=== PATIENT | male | born 2000 | race Caucasian/White ===

== ENCOUNTER 2023-11-05 09:58 | Emergency (ER) | payer BC, SELFPAY ==
[2023-11-05 10:00] VITALS: BP 114/66
[2023-11-05] MEDS: TYLENOL 650 MG PO (10:41)
[2023-11-05] MEDS: TORADOL 15 MG IV (10:41)
[2023-11-05 10:54] LABS: % Basophils 0.4 % (0-2); % Immature Granulocytes 0.6 % (0-0.5); % Lymphocytes 6.8 % (20.5-51.1); % Monocytes 8.5 % (1.7-9.3); % Neutrophils 83.7 % (42.2-75.2); Absolute Basophils 0.1 10^3/uL (0-0.2); Absolute Immature Granulocytes 0.1 10^3/uL (0-0.05); Absolute Monocytes 1.2 10^3/uL (0.1-0.6); Absolute Neutrophils 11.7 10^3/uL (1.4-6.5); Hematocrit 37.7 % (39.0-52.0); Hemoglobin 13.2 g/dL (13.0-18.0); Mean Corpuscular Hgb 29.7 pg (27.0-31.0); Mean Corpuscular Volume 84.7 fL (80.0-94.0); Mean Platelet Volume 9.8 fL (7.4-10.4); Nucleated Red Blood Cells % 0 % (-); Platelet Count 212 10^3/uL (130-400); Red Blood Cell Count 4.45 10^6/uL (4.70-6.10); Red Cell Dist. Width 12.7 % (11.5-14.5); White Blood Cell Count 13.9 10^3/uL (4.8-10.8)
--- NOTE | 2023-11-05 11:00 | ED.GENMED ---
History of Present Illness
General
Chief Complaint: Chest Pain
Source: patient
Exam Limitations: none
Time Seen by Provider: 11/05/23 10:07
Nursing documentation reviewed up to this point in time: agreed with
Travel History
Have you had any contact with someone who has COVID-19?: No
Do you have any symptoms of coronavirus? Fever > 100 degrees, chills, cough, shortness of breath, sore throat, loss of taste or smell, muscle aches, or headache?: No
History of Present Illness
History of Present Illness:
23-year-old male with no medical problems presents with 4 days of chest discomfort, mild dry cough, and some shortness of breath. Patient says it feels like something was on top of his chest causing him and inability to take a deep breath for the
last couple of days. He has had some body aches upper back pain and a dry cough. He had residual prednisone from previous flu infection from last month from urgent care. He took a dose of this prednisone yesterday to see if it helped his back
pain. He denies that he had wheezing in the past. Patient says it hurts when he takes a deep breath. He was not aware that he had a fever. He denies any sore throat, headache, syncope, abdominal pain, vomiting, leg swelling. There is been no
recent immobility or surgery. There is no family history of DVT or PE. Patient is not a smoker
Patient went to urgent care today and he had an normal chest x-ray but was told there was an abnormality of his EKG and referred to the emergency department for evaluation for a blood clot.
Past History
Past History
ED Past Medical History: None
ED Past Surgical History: None
Social History
Tobacco: Non-smoker
Alcohol: Occasional
Drug: None
Personal: Single
Living: with family
Employment: Employed
Review of Systems
Review of Systems
Allergies reviewed?: Yes
All Other Systems: Not applicable
Phy Exam
Physical Exam
Physical Exam:
GENERAL: Alert , in no apparent distress, nontoxic, well appearing
EYE: pupils equal and reactive
NECK: Supple
ENT: b/l TM s clear, pharynx nonerythematous, no tonsillar hypertrophy or exudates
CARDIAC: Regular rate and rhythm, no edema
LUNGS: Clear breath sounds bilaterally, no acute respiratory distress, no wheezes/rales/rhonchi, occ cough
chest wall: nontender
ABDOMEN: Soft, without focal tenderness, no r/g, no cvat, normal bowel sounds
NEUROLOGICAL: Alert and oriented, no focal neuro deficits
SKIN: Warm and dry, skin intact.
MUSCULOSKELETAL: No edema, well perfused.
PSYCH: Normal and appropriate interaction.
Scores
Heart Score for Chest Pain Patients
STEMI patient?: Not applicable
Course
Orders/Labs/Results
Orders:
Orders
11/05/23 10:05
Electrocardiogram (*1) Urgent
Reason for Study: Chest Pain
EKG- Treatment ONCE
11/05/23 10:34
Acetaminophen [Tylenol] 650 mg PO NOW STA
Ketorolac [Toradol] 15 mg IV NOW STA
11/05/23 10:38
Complete Blood Count/With Diff Urgent
Comprehensive Metabolic Panel Urgent
D-Dimer Urgent
Troponin I Urgent
11/05/23 11:22
CR Chest - 2 Views Urgent
Comment:
Reason For Exam: chest pain, cough
11/05/23 12:12
Amoxicillin 875 mg/Clav 125 mg [Augmentin 875 mg/125 mg] 1 tablet PO NOW STA
Azithromycin [Zithromax] 500 mg PO NOW STA
Abnormal Lab Results
11/05/23
10:38
WBC 13.9 H 10^3/uL
(4.8-10.8)
RBC 4.45 L 10^6/uL
(4.70-6.10)
Hct 37.7 L %
(39.0-52.0)
Abs Immat Gran (auto) 0.1 H 10^3/uL
(0-0.05)
Absolute Neuts (auto) 11.7 H 10^3/uL
(1.4-6.5)
Absolute Lymphs (auto) 1.0 L 10^3/uL
(1.2-3.4)
Absolute Monos (auto) 1.2 H 10^3/uL
(0.1-0.6)
Immature Gran % 0.6 H %
(0-0.5)
Neutrophils % 83.7 H %
(42.2-75.2)
Lymphocytes % 6.8 L %
(20.5-51.1)
Sodium 131 L mmol/L
(135-145)
Chloride 96 L mmol/L
(98-107)
Glucose 106 H mg/dl
(70-99)
11/05/23 10:38
11/05/23 10:38
Vital Signs
Initial and Last Documented VS:
Initial Vital Signs
Temp Pulse Resp BP Pulse Ox
100.5 F H 100 18 114/66 100
11/05/23 10:00 11/05/23 10:00 11/05/23 10:00 11/05/23 10:00 11/05/23 10:00
Last Documented Vital Signs
Temp Pulse Resp BP Pulse Ox
100.5 F H 93 18 115/58 98
11/05/23 10:00 11/05/23 11:13 11/05/23 11:13 11/05/23 11:13 11/05/23 11:13
MDM/Problems Addressed
Differential Diagnosis Includes:
PNEUMONIA, PE, MYOCARDITIS, URI
MDM/Problems Addressed:
23 y/o M with no sig pmh
here with 4 days of mild chest discomfort with some sob at times,worse with deep breathing
pt had low grade temp today and has had a cough
tested neg for flu/covid at
was told his CXR was normal
but that ekg was abnormal and sent for PE w/u.
pt has no PE rf
no tachycardia, tachypnea
thus, d dimer was ordered as screening which was neg
ekg here is normal, unclear what was abnormal abou this ekg
trop neg
wbc 13 with left shift and cxr with obvious infiltrate L lung, independently reviewed by me
pt will need to ensure resolution with cxr in2 weeks but all signs pointing to infectious and not mass
zithromax 500 mg x 3 days, agumentin bid x 7 days
return precautions.
*Critical Care Note
Total Time (30-74mins, 75-104mins- exclusive of procedures): Not Applicable
ED Attending Note
-
Portions of this chart may have been created with voice recognition software.� Occasional wrong word or��sound alike� substitutions may have occurred due to the inherent limitations of voice recognition software.
Discharge Plan
Departure
Patient Disposition: Home (Routine Discharge)
Date of Disposition: 11/05/23
Time of Disposition: 12:12
Patient with high blood pressure during this ER visit?: No
Condition: Fair
Covid-19: Not Applicable
Discharge Problem:
Pneumonia
Instructions: Pneumonia, Adult (DC), Chest Pain PCP Follow Up
Prescriptions:
New
amoxicillin-pot clavulanate 875-125 mg tablet
1 tab PO BID Qty: 14 0RF
azithromycin [Zithromax] 500 mg tablet
500 mg PO DAILY 2 Days Qty: 2 0RF
Referrals:
UNKNOWN - PT DOES,NOT KNOW [Family Provider] -
Stand Alone Forms: Return to Work
Activity Restrictions/Additional Instructions:
YOU HAVE PNEUMONIA IN YOUR LEFT LUNG
YOU NEED TO HAVE A CHEST XRAY IN 2 WEEKS TO ENSURE RESOLUTION OF THIS AREA
TAKE ZITHROMAX ONCE A DAY STARTING TOMORROW FOR 2 MORE DAYS
TAKE AUGMENTIN TWICE A DAY (STARTING TONIGHT) FOR TOTAL OF 7 DAYS
YOU MAY WANT TO USE A PROBIOTIC WHILE ON ANTIBIOTICS (JUST DO NOT TAKE AT THE SAME TIME THE ANTIBIOTICS)
TAKE TYLENOL AND MOTRIN FOR PAIN NEEDED
STAY HYDRATED
RETURN FOR: WORSENING CHEST PAIN, SHORTNESS OF BREATH, PASSING OUT, VOMITING, SEVERE DIARRHEA, HIGH FEVER OR ANY CONCERNS.
Interventions
Interventions:
*Risk Screen - Suicide Last Done: 11/05/23 11:10
*Neglect/Abuse Screening Last Done: 11/05/23 11:10
ED- Fall Risk Assessment Last Done: 11/05/23 10:51
*ED COVID-19 Vaccine History Last Done: 11/05/23 10:03
ED- Cardiac Assessment Last Done: 11/05/23 10:51
[2023-11-05 11:07] LABS: ALT (SGPT) 34 U/L (0-50); AST (SGOT) 33 U/L (17-59); Albumin 3.9 g/dl (3.5-5.0); Alkaline Phosphatase 67 U/L (38-126); Blood Urea Nitrogen 13 mg/dl (9-20); Carbon Dioxide 25 mmol/L (22-30); Chloride 96 mmol/L (98-107); Glucose 106 mg/dl (70-99); Sodium 131 mmol/L (135-145); Total Bilirubin 1.1 mg/dl (0.2-1.3); Total Protein 6.5 g/dl (6.3-8.2); eGFR > 60.00
[2023-11-05 11:11] VITALS: BMI 22.9
[2023-11-05 11:13] VITALS: BP 115/58
[2023-11-05 11:18] LABS: Troponin I < 0.012 ng/ml
[2023-11-05 11:20] LABS: D-Dimer < 0.27 ug/mlFEU (0.00-0.50)
[2023-11-05] MEDS: ZITHROMAX 500 MG PO (12:29)
[2023-11-05] MEDS: AUGMENTIN 875 MG/125 MG 1 TABLET PO (12:29)
[2023-11-05 12:44] VITALS: BP 111/55
== END 2023-11-05 13:03 | disposition home or self-care (01) ==
LOC: EMR 09:58
PROVIDERS: Physician Assistant; EMERGENCY PHYSICIAN Emergency Medicine
DX: J18.9 Pneumonia, unspecified organism (principal)
CPT/HCPCS: 99285; 96374; 71046; 80053; 84484; 85025; 85379; 93005